=== PATIENT | male | born 1980 | race Caucasian/White ===

== ENCOUNTER 2016-10-04 12:19 | Emergency (ER) | payer SELFPAY ==
[~2016-10-04] VITALS: Ht 175.3 cm; Wt 85.6 kg
[2016-10-04 12:25] VITALS: BP 123/72
== END 2016-10-04 14:18 | disposition home or self-care (01) ==
LOC: ED 14:00
DX: L20.84 Intrinsic (allergic) eczema (principal)
CPT/HCPCS: 99283

== ENCOUNTER 2016-11-21 21:04 | Emergency (ER) | payer MEDICAID ==
[~2016-11-21] VITALS: Ht 175.3 cm; Wt 84.3 kg
[2016-11-21 21:07] VITALS: BP 132/83
== END 2016-11-21 22:17 | disposition home or self-care (01) ==
LOC: ED 22:00
DX: J20.9 Acute bronchitis, unspecified (principal); L20.84 Intrinsic (allergic) eczema
CPT/HCPCS: 99283

== ENCOUNTER 2016-12-10 17:21 | Emergency (ER) | payer MEDICAID ==
[~2016-12-10] VITALS: Ht 175.3 cm; Wt 88.9 kg
[2016-12-10 17:23] VITALS: BP 122/78
== END 2016-12-10 17:39 | disposition left against medical advice (07) ==
LOC: ED 17:33
DX: R42 Dizziness and giddiness (principal); Z53.21 Procedure and treatment not carried out due to patient leaving prior to being seen by health care provider

== ENCOUNTER 2016-12-10 18:00 | Emergency (ER) | payer MEDICAID ==
[~2016-12-10] VITALS: Ht 175.3 cm; Wt 88.7 kg
[2016-12-10] MEDS ORDERED: BICILLIN-LA 2,400,000 UNITS/4 ML IM ONE (19:00)
[2016-12-10 19:06] LABS: HEMATOCRIT 45.9 % (39.2-51.8); HEMOGLOBIN 16.1 g/dL (13.7-18.0); WHITE BLOOD COUNT 7.7 x10^3/uL (3.4-10)
[2016-12-10 19:17] LABS: BLOOD UREA NITROGEN 18 mg/dL (7-18)
[2016-12-10 19:40] VITALS: BP 136/77
== END 2016-12-10 20:00 | disposition home or self-care (01) ==
LOC: ED 19:40
DX: A51.49 Other secondary syphilitic conditions (principal); A51.31 Condyloma latum; Z87.891 Personal history of nicotine dependence
CPT/HCPCS: 36415; 71020; 80048; 82040; 85025; 86592; 93005; 96372; 99285; J0561